=== PATIENT | female | born 1945 | race Caucasian/White ===

== ENCOUNTER 2018-11-17 09:10 | Outpatient (CLI) | payer MEDICARE, OTHER ==
--- NOTE | 2018-11-17 10:18 | RAD ---
FOUR VIEWS LUMBAR SPINE: Date: 11-17-18 Comparison: None available. History: Low back pain. FINDINGS: Frontal imaging of the lumbar spine demonstrates five lumbar type vertebral bodies with intact pedicl es. Weight bearing neutral lateral radiograph of the lumbar spine demonstrates mild facet hypertrophy at L4-5 and L5-S1. There is atherosclerotic calcification of the abdominal aorta. There is no signif icant anterolisthesis or retrolisthesis. At L1-2 there is disc space narrowing, degenerative endplate change and anterior osteophyte formation . On flexion imaging and extension imaging there is no anterolisthesis or retrolisthesis noted. There is no evidence for acute fracture or dislocation. IMPRESSION: Degenerative changes of the lumbar spine as detailed above. No significant anterolisthesis or retroli sthesis noted. POS: [facility]
== END 2018-11-17 09:11 | disposition home or self-care (01) ==
LOC: BICRAD 09:10
PROVIDERS: ATTEND Family Medicine
DX: M47.26 Other spondylosis with radiculopathy, lumbar region (principal); M47.27 Other spondylosis with radiculopathy, lumbosacral region; M62.838 Other muscle spasm
CPT/HCPCS: 72110

== ENCOUNTER 2018-12-11 07:57 | Outpatient (CLI) | payer MEDICARE ==
--- NOTE | 2018-12-11 09:38 | MRI ---
MRI LUMBAR SPINE: History: Low back pain. Degenerative disease. Technique: Multiplanar, multisequence noncontrast enhanced MRI images lumbar spine obtained. FINDINGS: For the purposes of this dictation, the last freely mobile vertebral body will be considered to be th e L5 vertebral body. All other vertebral bodies numbered according to this. T12-L1: Unremarkable. L1-2: Disc desiccation is seen. There is disc space height loss seen. There is a L1-2 paraspinal broa d based disc protrusion compressing the thecal sac and right L1-2 lateral recess. Mild bilateral fora elisa narrowing is seen. L2-3: There is bilateral facet and ligamentum flavum hypertrophy. Moderate left L2-3 lateral recess s tenosis is seen. The right neural foramen is patent. Mild left L2-3 neural foraminal narrowing due to facet hypertrophy. L3-4: There is bilateral facet and ligamentum hypertrophy. This results in mild central and lateral r ecess stenosis. Mild neural foraminal narrowing is seen. L4-5: Disc desiccation is seen. There is a broad based disc bulge with bilateral facet and ligamentum flavum hypertrophy resulting in mild central and lateral recess stenosis. Mild to moderate bilateral neural foraminal narrowing is seen. No evidence of disc herniation is seen. L5-S1: There is bilateral facet hypertrophy seen. No significant degree of central stenosis is seen. Neural foramen are patent. IMPRESSION: 1. Multilevel facet hypertrophic changes with right L1-2 paracentral broad based disc protrusion. POS: [facility]
== END 2018-12-11 07:58 | disposition home or self-care (01) ==
LOC: SCSMRI 07:57
PROVIDERS: ATTEND Family Medicine
DX: M51.16 Intervertebral disc disorders with radiculopathy, lumbar region (principal); M54.5 Low back pain
CPT/HCPCS: 72148